=== PATIENT | male | born 1970 | race Caucasian/White ===

== ENCOUNTER 2019-03-17 15:31 | Emergency (ER) | payer OTHER ==
[~2019-03-17] VITALS: Ht 190.5 cm; Wt 168.9 kg
--- NOTE | 2019-03-17 16:19 | Diagnostic Imaging Report ---
Chest, 1 view, 03/17/2019. History: Chest pain. Comparison: None available. Findings: The cardiomediastinal silhouette and pulmonary vasculature are within normal limits for a portable exam. Minimal linear opacities are present lung bases. There is no focal consolidation or pleural effusion. There are no acute osseous or soft tissue abnormalities. Impression: Bibasilar linear atelectasis. Signed by: Derrick Herrera on 03/17/2019 4:15 PM
[2019-03-17] MEDS ORDERED: CLONIDINE HCL 0.2 MG TAB PO ONE (17:30)
[2019-03-17] MEDS ORDERED: ASPIRIN 325 MG TAB PO ONE (17:30)
[2019-03-17] MEDS ORDERED: CLONIDINE HCL 0.1 MG TAB ONE (17:37)
[2019-03-17] MEDS ORDERED: ASPIRIN 325 MG TAB ONE (17:38)
[2019-03-17] MEDS ORDERED: HYDRALAZINE HCL 20 MG/ML VIAL IV ONE (18:15)
[2019-03-17] MEDS ORDERED: KETOROLAC TROMETHAMINE 30 MG/ML VIAL IV STA (18:25)
[2019-03-17 19:20] VITALS: BP 161/99
== END 2019-03-17 18:41 | disposition left against medical advice (07) ==
LOC: FSED 15:31
DX: R07.2 Precordial pain (principal); I10 Essential (primary) hypertension; F17.200 Nicotine dependence, unspecified, uncomplicated
CPT/HCPCS: 71045; 80053; 82553; 84484; 85025; 93005; 96374; 99284; J0360; J1885

== ENCOUNTER → 2019-04-20 | Day surgery (SDC) | payer OTHER ==
[2019-04-19 15:41] LABS: BASOPHILS # (AUTO) 0.1 (0.0-0.1); BASOPHILS % 1.2 % (0.0-1.0); EOSINOPHILS # (AUTO) 0.2 (0.0-0.4); EOSINOPHILS % 1.3 % (0.0-6.0); HEMATOCRIT 56.6 % (38.2-49.6); HEMOGLOBIN 19.5 g/dL (14.0-18.0); LYMPHOCYTES # (AUTO) 2.6 (1.0-3.2); MEAN CORPUSCULAR HEMOGLOBIN 31.6 pg (28-32); MEAN CORPUSCULAR HGB CONC 34.5 g/dL (31-35); MEAN CORPUSCULAR VOLUME 91.6 fL (81-99); MONOCYTES # (AUTO) 0.9 (0.2-0.8); MONOCYTES % 7.8 % (4.4-11.3); NEUTROPHILS # (AUTO) 7.4 (2.1-6.9); NEUTROPHILS % 66.2 % (38.7-80.0); PLATELET COUNT 326 x10e3/uL (140-360); RED BLOOD COUNT 6.18 x10e6/uL (4.3-5.7); RED CELL DISTRIBUTION WIDTH 12.4 % (11.7-14.4)
[2019-04-19 15:59] LABS: ALANINE AMINOTRANSFERASE 36 IU/L (0-55); ALKALINE PHOSPHATASE 100 IU/L (40-150); ANION GAP 12.4 mmol/L (8-16); BLOOD UREA NITROGEN 15 mg/dL (7-26); BUN/CREATININE RATIO 17 (6-25); CARBON DIOXIDE 26 mmol/L (22-29); CHLORIDE 101 mmol/L (98-107); EST GLOMERULAR FILTRATION RATE > 60 ML/MIN (60-); GLUCOSE 130 mg/dL (74-118); POTASSIUM 3.4 mmol/L (3.5-5.1); SODIUM 136 mmol/L (136-145)
[~2019-04-20] VITALS: Ht 190.5 cm; Wt 167.8 kg
[~2019-04-20] MED LIST: ALPRAZOLAM 0.5 MG TAB ONE; BENICAR20 MG PO; CYMBALTA30 MG PO; DIPHENHYDRAMINE HCL 25 MG CAP ONE; FENTANYL CITRATE/PF 100MCG/2 ML INJ ONE; HEPARIN SOD (PORCINE) 1000 UNIT/ML 30ML ONE; HEPARIN SOD/SOD CHLORIDE 2,000 ML ONE; IOPAMIDOL 370 MG/ML 200 ML INFUS..BTL INJ ONE; LIDOCAINE HCL 2% LOCAL 20 ML VIAL ONE; METOPROLOL SUCC50 MG PO; MIDAZOLAM HCL 2 MG/2 ML VIAL ONE; QUETIAPINE FUM100 MG PO; SODIUM CHLORIDE 0.9% 1000ML 1,000 ML ONE; VERAPAMIL HCL 2.5 MG/ML 2 ML VIAL ONE; VICTOZA 3-0.6 MG/0.1 IJ
--- OUTSIDE RECORDS SUMMARY | 2019-04-20 10:47 | XMS REPORT ---
Author [facility] Address Unknown Phone Unavailable Care Team Providers Care Press Box Custodian Name Role Phone BENNY COKER Unavailable Unavailable Problems This patient has no known problems. Allergies, Adverse Reactions, Alerts This patient has no known allergies or adverse reactions. Medications This patient has no known medications. Results Test Description Test Time Test Comments Text Results Atomic Results Result Comments CXR 1 [facility] 2019-03-17 16:15:00 [facility] [address] [address] Patient Name: LANEY MEDEIROS MR #: [id number] : 1970 Age/Sex: 48/M Req #: [id number] [facility] Physician: Ordered by: BENNY COKER MD Report #: [id number] Location: [facility] Room/Bed: Procedure: [id number] HOPD/CXR 1 [facility] Exam Date: 03/17/19 Exam Time: 1611 REPORT STATUS: Signed Chest, 1 view, 03/17/2019. History: Chest pain. Comparison: None available. Findings: The cardiomediastinal silhouette and pulmonary vasculature are within normal limits for a portable exam. Minimal linear opacities are present lung bases. There is no focal consolidation or pleural effusion. There are no acute osseous or soft tissue abnormalities. Impression: Bibasilar linear atelectasis. Signed by: Mikel Herrera on 03/17/2019 4:15 PM Dictated By: MIKEL HERRERA MD 161 Transcribed By: BARRERA on 03/17/191614 COPY TO: BENNY COKER MD
[2019-04-20 11:30] VITALS: BP 137/97
--- NOTE | 2019-04-20 11:30 | NUR ---
1130 pt in Cl #10 prepped for procedure. Alert oriented and appropriate, PERRLA, respirations even and unlabored to room air. Pulses x4 extremities equal and faint. Pedal pulses PT/DP weak to nonexistent and marked. Cap fill brisk < 3 sec. bilateral feet semi cool and pale. Skin warm and dry integrity appears intact in general. IV started to left hand and presents healthy w/o s/s of infiltration or complaint. NS 0.9% hanging at bedside. Abdomen soft and supple. pt offered toileting, denies need to urinate or defecate. Personal affects with patient. Family not bedside. Pt to call after procedure.Pt verbalizes understanding of POC. Pre-Op Meds benadryl and xanax given. bed low and locked, side rails up x2 and call light at side.Report to Greg LOZANO. -treva/rn
--- NOTE | 2019-04-20 13:15 | NUR ---
Report received from Dorcas Moore RN, review of procedural findings and medications given. Patient drowsy, easily aroused. maintains airway and room air saturations of 98-99%. No gross issues of pressure, pain, pallor or dysrhythmia. IV site patent with NS 0.9% at KVO by gravity. patient hemodynamically stable with hemostasis TR band to right radial dressing CDI w/o s/s of [id number] to bladder. patient transferred to stretcher under own strength w/o incident. transported to [place] [address] for recovery- [facility] procedure: diagnostic LHC and coronary angiography Sheath puller: Cory ORO Pt bed low and locked, side rails up x2, call light within reach. informed that daughter was present. Pt elected to recovery alone
[2019-04-20 13:30] VITALS: BP 141/89
[2019-04-20 13:45] VITALS: BP 138/92
[2019-04-20 14:00] VITALS: BP 140/88
--- NOTE | 2019-04-20 14:05 | NUR ---
TR band removed successfully , DC teaching performed, right wrist precautions reviewed. Pt requesting Work release, release provided.
[2019-04-20 14:15] VITALS: BP 142/86
--- NOTE | 2019-04-20 14:20 | NUR ---
Pt meets DC criteria. right radial assessed for s/s of complication and presence of hematoma. Overall skin warm, dry, no discolor, and pulses present. IV removed from left wrist by Tila PCT. Distal tip appears intact. VS WNL. Pt denies pain, sob, or need at this time. Family in waiting room. Review of discharge paperwork and follow up instructions. Wrist guard provided per patient request with understanding to remove in the morning. verbalized understanding. Pt made aware that family has been asking to visit during recovery. Acknowledged. Pt to wheelchair and transported to front of hospital. Transferred to private vehicle under own strength w/o incident with DC paperwork in hand. - cgf
--- NOTE | 2019-05-02 15:41 | Operative Report ---
DATE OF PROCEDURE: 04/19/2019 SURGEON: Uli Cisneros MD INDICATIONS FOR PROCEDURES: Chest pain and abnormal stress test. PREPROCEDURE ASSESSMENT: Risks, benefits, and alternatives to treatment were explained to the patient prior to the procedure. The patient was deemed to be an appropriate candidate for moderate sedation. Informed consent was obtained and documented in the medical record. PROCEDURES PERFORMED: 1. Coronary angiography. 2. Left heart catheterization. PROCEDURE DETAILS: The patient was brought to the cardiac catheterization laboratory in fasting state. Right wrist was prepped and draped in a sterile fashion. Coronary angiography was performed using 6-Pakistani Slender sheath was inserted in right radial artery with modified Seldinger technique. Coronary angiography was performed using 5-Pakistani Eva radial catheter to engage the left and right coronary system after catheterization was performed using the pigtail catheter. All catheters were removed over a wire. Coronary angiography demonstrated no significant coronary artery disease. Access site was closed using TR band. There were no immediate complications. SIGNIFICANT FINDINGS: Right dominant system. No significant CAD. GRAFTS AND IMPLANTS: None. SPECIMEN REMOVED: None. ESTIMATED BLOOD LOSS: 2 mL. COMPLICATIONS: None. FINAL RECOMMENDATIONS: 1. Continue optimal medical therapy and risk factor control. 2. Follow up in clinic 2 weeks post discharge. Uli Cisneros MD KVP/MODL /[id number]
== END | disposition home or self-care (01) ==
LOC: CATH LAB 10:45
PROVIDERS: ATTEND Internal Medicine
DX: I25.10 Atherosclerotic heart disease of native coronary artery without angina pectoris (principal); Z01.812 Encounter for preprocedural laboratory examination; J40 Bronchitis, not specified as acute or chronic; E11.9 Type 2 diabetes mellitus without complications; I10 Essential (primary) hypertension; Z83.3 Family history of diabetes mellitus; Z82.49 Family history of ischemic heart disease and other diseases of the circulatory system; F17.210 Nicotine dependence, cigarettes, uncomplicated; I20.8 Other forms of angina pectoris
CPT/HCPCS: 36415; 80053; 85025; 93458; C1887; J1644; J2001; J2250; J3010; J7030; Q9967; 99152

== ENCOUNTER 2020-10-31 18:11 | Emergency (ER) | payer OTHER ==
[~2020-10-31] VITALS: Ht 190.5 cm; Wt 178.3 kg
[~2020-10-31 18:11] MED LIST changes: -ALPRAZOLAM 0.5 MG TAB ONE; -DIPHENHYDRAMINE HCL 25 MG CAP ONE; -FENTANYL CITRATE/PF 100MCG/2 ML INJ ONE; -HEPARIN SOD (PORCINE) 1000 UNIT/ML 30ML ONE; -HEPARIN SOD/SOD CHLORIDE 2,000 ML ONE; -IOPAMIDOL 370 MG/ML 200 ML INFUS..BTL INJ ONE; -LIDOCAINE HCL 2% LOCAL 20 ML VIAL ONE; -MIDAZOLAM HCL 2 MG/2 ML VIAL ONE; -SODIUM CHLORIDE 0.9% 1000ML 1,000 ML ONE; -VERAPAMIL HCL 2.5 MG/ML 2 ML VIAL ONE
[2020-10-31] MEDS ORDERED: ATORVASTATIN CA10 MG PO (18:33)
[2020-10-31] MEDS ORDERED: ULTRAM50 MG PO (18:33)
[2020-10-31] MEDS ORDERED: OLMESARTAN-HCT1 EAC2 (18:33)
[2020-10-31] MEDS ORDERED: METFORMIN HCL500 M1 PO (18:33)
[2020-10-31] MEDS ORDERED: CYCLOBENZAPRINE5 MG PO (18:39)
[2020-10-31] MEDS ORDERED: NAPROSYN500 MG PO (18:39)
[2020-10-31] MEDS ORDERED: IBUPROFEN 600 MG TAB PO ONE (19:38)
[2020-10-31] MEDS ORDERED: CYCLOBENZAPRINE HCL 10 MG TAB ONE (19:38)
[2020-10-31] MEDS ORDERED: IBUPROFEN 600 MG TAB ONE (19:38)
[2020-10-31] MEDS ORDERED: CYCLOBENZAPRINE HCL 10 MG TAB PO ONE (19:45)
== END 2020-10-31 20:08 | disposition home or self-care (01) ==
LOC: FSED 18:30
DX: M25.562 Pain in left knee (principal); I10 Essential (primary) hypertension; E11.9 Type 2 diabetes mellitus without complications; E78.5 Hyperlipidemia, unspecified; F32.9 Major depressive disorder, single episode, unspecified; F17.210 Nicotine dependence, cigarettes, uncomplicated
CPT/HCPCS: 99283

== ENCOUNTER → 2020-11-28 | Day surgery (SDC) | payer OTHER ==
[2020-11-26 12:45] LABS: ANION GAP 12.9 mmol/L (8-16); CREATININE, SERUM 0.98 mg/dL (0.72-1.25); POTASSIUM 3.9 mmol/L (3.5-5.1)
[~2020-11-28] MED LIST changes: +ATORVASTATIN CA10 MG PO; +BUPIVACAINE HCL 0.5% INJ 30 ML VIAL INJ ONE; +CYCLOBENZAPRINE5 MG PO; +FENTANYL CITRATE/PF 100MCG/2 ML INJ ONE; +KETOROLAC TROMETHAMINE 30 MG/ML VIAL ONE; +LIDOCAINE HCL 2% JELLY 5 ML TUBE ONE; +LIDOCAINE HCL 2% LOCAL INJ 5 ML SDV VIAL INJ ONE; +METFORMIN HCL500 M1 PO; +METOPROLOL TAR100 MG PO; +MIDAZOLAM HCL 2 MG/2 ML VIAL ONE; +NAPROSYN500 MG PO; +OLMESARTAN-HCT1 EAC2; +ONDANSETRON HCL INJ 2MG/ML 2ML 2 MG/ML VIAL ONE; +POVIDONE IODINE 0.05% 0.05 % ML PO ONE; +PROPOFOL IV EMULSION 10 MG/ML 20 ML VIAL ONE; +SEVOFLURANE INHAL SOLN 250 ML PEN BTL ONE; +SODIUM CHLORIDE 0.9% 50ML 100 ML ONE; +ULTRAM50 MG PO
[2020-11-28 12:15] VITALS: BP 168/99
== END | disposition home or self-care (01) ==
LOC: OR 08:21
PROVIDERS: ATTEND Specialist
DX: S83.222A Peripheral tear of medial meniscus, current injury, left knee, initial encounter (principal); M17.12 Unilateral primary osteoarthritis, left knee; M22.42 Chondromalacia patellae, left knee; M67.52 Plica syndrome, left knee; E11.9 Type 2 diabetes mellitus without complications; I10 Essential (primary) hypertension; F41.9 Anxiety disorder, unspecified; F17.200 Nicotine dependence, unspecified, uncomplicated; X58.XXXA Exposure to other specified factors, initial encounter; Z01.810 Encounter for preprocedural cardiovascular examination; Z01.812 Encounter for preprocedural laboratory examination; Z01.818 Encounter for other preprocedural examination; Z20.822 Contact with and (suspected) exposure to COVID-19; Z79.84 Long term (current) use of oral hypoglycemic drugs
CPT/HCPCS: 29881; 36415 ×2; 71046; 80048; 82948; 93005; J0690; J1885; J2001 ×2; J2250; J2405; J2704; J3010; U0002

== ENCOUNTER 2021-01-04 14:48 | Outpatient (RCR) | payer OTHER ==
[~2021-01-04 14:48] MED LIST changes: -BUPIVACAINE HCL 0.5% INJ 30 ML VIAL INJ ONE; -FENTANYL CITRATE/PF 100MCG/2 ML INJ ONE; -KETOROLAC TROMETHAMINE 30 MG/ML VIAL ONE; -LIDOCAINE HCL 2% JELLY 5 ML TUBE ONE; -LIDOCAINE HCL 2% LOCAL INJ 5 ML SDV VIAL INJ ONE; -MIDAZOLAM HCL 2 MG/2 ML VIAL ONE; -ONDANSETRON HCL INJ 2MG/ML 2ML 2 MG/ML VIAL ONE; -POVIDONE IODINE 0.05% 0.05 % ML PO ONE; -PROPOFOL IV EMULSION 10 MG/ML 20 ML VIAL ONE; -SEVOFLURANE INHAL SOLN 250 ML PEN BTL ONE; -SODIUM CHLORIDE 0.9% 50ML 100 ML ONE
== END 2021-01-05 ==
LOC: PT 14:48
PROVIDERS: ATTEND Specialist
DX: S83.222D Peripheral tear of medial meniscus, current injury, left knee, subsequent encounter (principal); Z47.89 Encounter for other orthopedic aftercare
CPT/HCPCS: 97139

== ENCOUNTER 2024-04-06 15:07 | Emergency (ER) | payer BC, OTHER ==
[~2024-04-06] VITALS: Ht 190.5 cm; Wt 155.7 kg
[~2024-04-06 15:07] MED LIST changes: +CILOXAN3.5 GM OD; +DOXYCYCLINE HY100 MG PO
[2024-04-06] MEDS ORDERED: PROPRANOLOL HCL40 MG PO (15:29)
[2024-04-06] MEDS ORDERED: REXULTI2 MG (15:29)
[2024-04-06] MEDS ORDERED: BENZONATATE100 MG PO (16:08)
[2024-04-06 16:16] VITALS: PULSE 95; RESP 18; TEMP 102.8; O2SAT 95
[2024-04-06] MEDS: IBUPROFEN 600 MG TAB PO STA (16:18)
== END 2024-04-06 16:16 | disposition home or self-care (01) ==
LOC: FSED 15:11
DX: R50.9 Fever, unspecified (principal); B34.9 Viral infection, unspecified; J98.8 Other specified respiratory disorders; Z11.52 Encounter for screening for COVID-19
CPT/HCPCS: 0223U; 83518; 87400; 99283

== ENCOUNTER 2024-07-02 13:58 | Emergency (ER) | payer BC ==
[~2024-07-02] VITALS: Ht 190.5 cm; Wt 155.6 kg
[~2024-07-02 13:58] MED LIST changes: +BENZONATATE100 MG PO; +PROPRANOLOL HCL40 MG PO; +REXULTI2 MG
[2024-07-02 14:00] VITALS: PULSE 74; RESP 18; TEMP 98.4
[2024-07-02] MEDS ORDERED: TAMIFLU6 MG/1 ML PO (14:25)
[2024-07-02] MEDS ORDERED: ONDANSETRON ODT4 MG PO (14:26)
[2024-07-02] MEDS ORDERED: TAMIFLU75 MG PO (14:29)
[2024-07-02] MEDS: DEXAMETHASONE SOD PHOS INJ 4 MG/ML SDV IV ONE (15:20)
[2024-07-02 15:35] VITALS: BP 160/84; PULSE 74; RESP 17; TEMP 98.3; O2SAT 98
== END 2024-07-02 15:37 | disposition home or self-care (01) ==
LOC: FSED 14:23
DX: R50.9 Fever, unspecified (principal); J10.1 Influenza due to other identified influenza virus with other respiratory manifestations; R05.9 Cough, unspecified; I10 Essential (primary) hypertension; E11.9 Type 2 diabetes mellitus without complications; E78.5 Hyperlipidemia, unspecified; K21.9 Gastro-esophageal reflux disease without esophagitis; F41.9 Anxiety disorder, unspecified; F32.A Depression, unspecified; M54.9 Dorsalgia, unspecified; G89.29 Other chronic pain; Z11.52 Encounter for screening for COVID-19
CPT/HCPCS: 99283; J1100